=== PATIENT | male | born 1960 | race Caucasian/White ===

== ENCOUNTER → 2016-12-02 | Day surgery (SDC) | payer OTHER ==
[2016-11-28 12:07] VITALS: BMI 29.0
[~2016-12-02] VITALS: Ht 175.3 cm; Wt 90.9 kg
[~2016-12-02] MED LIST: ALBUAER2 INH; ATOR-26 PO; ATV/1 PO; BUPR-79 PO; BUPR100T8 PO; CITA40TA12 PO; FERR325T PO; LEVO175T3 PO; LIDOCAINE HCL 2% 2 ML VIAL (20MG/ML) ONE; LISI-729 PO; METO50TA16 PO; MULTTAB5 PO; OMEG10007 PO; OXYB5TAB74 PO; PHENYLEPHRINE HCL INJ 10 MG/ML VIAL ONE; PROPOFOL IV EMULSION 10 MG/ML 20 ML VIAL IV ONE; PRT/40 PO; QUET400T PO; RANI300T2 PO; SODIUM CHLORIDE 0.9% 500ML 500 ML IV ONE; SUMA100T15 PO; TOPI50TA16 PO; TRAZ1TAB52 PO
[2016-12-02 10:02] VITALS: Ht 175.3 cm; Wt 90.9 kg
--- NOTE | 2016-12-02 11:27 | Endo History and Physical ---
History & Physical Date of Service: Dec 02, 2016. Chief Complaint: chronic reflux Referring Physician: Dr. 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 Pre operative evaluation with MAO pH study off medication. Past Medical History Anxiety, Reflux, High Cholesterol, Hypertension, Thyroid Disease, Depression Past Surgical History Hx Cardiac Surgery: No Hx Internal Defibrillator: No Hx Pacemaker: No Hx Abdominal Surgery: No Hx of Implantable Prosthesis: No Hx Post-Op Nausea and Vomiting: No Hx Cancer Surgery: No Hx Thoracic Surgery: No Hx Orthopedic: No Hx Urinary Tract Surgery: No Family History None Social History Smoking Status: Former Smoker Hx Substance Use: No Hx Alcohol Use: No Allergies Coded Allergies: No Known Allergies (Verified , 12/02/16) Current Medications Reported Home Medications Medications Dose Route/Sig Max Daily Dose Days Date Category Lopressor (Metoprolol Tartrate) 50 Mg Tab 50 Mg PO HS 11/28/16 Reported Wellbutrin Sr (Bupropion HCl) 150 Mg Ertab 150 Mg PO QAM 11/28/16 Reported Wellbutrin Sr (Bupropion HCl) 100 Mg Ertab 100 Mg PO DAILY AT NOON 11/28/16 Reported Ferrous Sulfate 325 Mg Tab 1 Tab PO HS 11/28/16 Reported Zantac (Ranitidine HCl) 300 Mg Tab 300 Mg PO HS 11/28/16 Reported Seroquel Xr Tab (Quetiapine Fumarate) 400 Mg Tabcr 400 Mg PO HS 11/28/16 Reported Desyrel (Trazodone Hcl) 150 Mg Tab 150 Mg PO HS 11/28/16 Reported Ditropan (Oxybutynin Chloride) 5 Mg Tab 1 Tab PO BID 90 11/28/16 Reported Levothyroxine Sodium 175 Mcg Tab 1 Tab PO QAM 90 11/28/16 Reported Topamax (Topiramate) 50 Mg Tab 50 Mg PO HS 11/28/16 Reported Ativan (Lorazepam) 1 Mg Tab 1 Mg PO DAILY PRN 11/28/16 Reported Centrum (Multiple Vitamins W/ Minerals) 1 Tab Tab 1 Tab PO HS 11/28/16 Reported [place]-3 (Fish Oil) 1 Ea Cap 1 Cap PO HS 11/28/16 Reported Imitrex (Sumatriptan Succinate) 100 Mg Tab 1 Tab PO UD PRN 30 11/28/16 Reported Lipitor (Atorvastatin Calcium) 80 Mg Tab 80 Mg PO HS 12/06/15 Reported Ventolin (Albuterol) Inh 2 Puffs INH QID PRN 5 08/16/15 Reported Celexa (Citalopram Hydrobromide) 40 Mg Tab 40 Mg PO HS 10/29/14 Reported Pantoprazole Sodium (Pantoprazole) 40 Mg Tab 40 Mg PO BID 10/29/14 Reported Zestril (Lisinopril) 5 Mg Tab 5 Mg PO HS 09/10/14 Reported Vital Signs Weight (Kilograms): 90.91 Height (Feet): 5 Height (Inches): 9 Date Time Temp Pulse Resp B/P Pulse Ox O2 Delivery O2 Flow Rate FiO2 12/02/16 10:11 36.6 79 16 122/72 95 Room Air Physical Exam General Appearance: WD/WN, no apparent distress Respiratory/Chest: Auscultation: breath sounds normal, no wheezing, no rales/crackles Cardiovascular: Heart Auscultation: RRR, no murmurs Abdomen: Inspection & Palpation: soft, no tenderness, guarding & rebound Assessment and Plan For EGD with Mao.
--- NOTE | 2016-12-02 11:52 | Discharge Instructions ---
Endoscopy Patient Instructions Date / Procedure(s) Performed Dec 02, 2016. EGD Allergy Information Coded Allergies: No Known Allergies (Verified , 12/02/16) Discharge Date / Findings Dec 02, 2016. Alvarez's esophagitis. Pierre pH transducer placed. Medication Instructions Stopped Medication(s): all medication held this morning Restart Stopped Medication(s): Remain off all acid suppressing medications for 48 hours. OK to restart after returning Pierre recorder. Provider Instructions Activity Restrictions - No exercising or heavy lifting for 24 hours. - Do not drink alcohol the day of the procedure. - Do not drive a car or operate machinery until the day after the procedure. - Do not make any important decisions or sign important papers in 24 hours after the procedure. Following Day: - Return to full activity which may include returning to work/school. Diet Start your diet with liquids and light foods (jello, soup, juice, toast). Then eat your usual diet if not nauseated. Treatment For Common After Affects For mild abdominal pain, bloating, or excessive gas: - Rest - Eat lightly - Lie on right side Follow-Up Information Follow-up with Drs. Mcconnell and Pedro as scheduled Anesthesia Information What You Should Know You have had a procedure that required some medicine to reduce anxiety and discomfort. This treatment is called moderate sedation. After receiving the treatment, you may be sleepy, but you will be able to breathe on your own. The effects of the treatment may last for several hours. Follow these instructions along with Activity/Diet recommendations noted above: * Do NOT do anything where dizziness or clumsiness would be dangerous. * Rest quietly at home today, then you can be up and about tomorrow. * Have a responsible person stay with you the rest of today. * You may have had an I.V. today. If so, you may take the dressing off later today. Recommendations Call your doctor if: * Trouble breathing * Continuous vomiting for more than 24 hours * Temperature above 101 degrees * Severe abdominal pain or bloating * Pain not relieved by pain medicine ordered * There is increased drainage or redness from any incision * A large amount of rectal bleeding greater than 2-3 tablespoons. (If you had a polyp/s removed or have hemorrhoids, a small amount of blood - from the rectum is to be expected.) * You have any unanswered questions or concerns. IN THE EVENT OF A SERIOUS EMERGENCY, GO TO THE NEAREST EMERGENCY ROOM Your discharge instructions were prepared by provider Arya Gilman. Patient Instructions Signature Page Richard Saavedra Patient (or Guardian) Signature/Date: I have read and understand the instructions given to me by my caregivers. Caregiver/RN/Doctor Signature/Date: The above-named patient and/or guardian has received patient instructions on this date. + Original Patient Signature Page (only) stays with chart. Please make copy for patient.
--- NOTE | 2016-12-02 11:55 | Anesthesiology Progress Note ---
Anesthesia Post Op Note Date & Time Dec 02, 2016 at 11:55 Vital Signs Pain Intensity: 0 Vital Signs Past 12 Hours Date Time Temp Pulse Resp B/P Pulse Ox O2 Delivery O2 Flow Rate FiO2 12/02/16 10:11 36.6 79 16 122/72 95 Room Air Notes Mental Status: alert / awake / arousable, participated in evaluation Pt Amnestic to Procedure: Yes Nausea / Vomiting: adequately controlled Pain: adequately controlled Airway Patency, RR, SpO2: stable & adequate BP & HR: stable & adequate Hydration State: stable & adequate Anesthetic Complications: no major complications apparent
[2016-12-02 12:17] VITALS: BP 106/66; PULSE 68; O2SAT 96
--- NOTE | 2016-12-03 00:45 | GI REPORT ---
Procedure Date: 12/02/2016 11:19 AM Procedure: Upper GI endoscopy Indications: Placement of Mao pH probe with patient off acid suppression, Alvarez's esophagus, Preoperative assessment Medicines: Monitored Anesthesia Care Complications: No immediate complications. Estimated blood loss: None. Estimated Blood Loss: Estimated blood loss: none. Procedure: Pre-Anesthesia Assessment: - Prior to the procedure, a History and Physical was performed, and patient medications, allergies and sensitivities were reviewed. The patient's tolerance of previous anesthesia was reviewed. - ASA Grade Assessment: III - A patient with severe systemic disease. After obtaining informed consent, the endoscope was passed under direct vision. Throughout the procedure, the patient's blood pressure, pulse, and oxygen saturations were monitored continuously. The scope was introduced through the mouth, and advanced to the third part of duodenum. The upper GI endoscopy was accomplished with ease. The patient tolerated the procedure well. Findings: The esophagus and gastroesophageal junction were examined with white light from a forward view and retroflexed position. There were esophageal mucosal changes classified as Alvarez's stage C0-M1 per Posey criteria. These changes involved the mucosa at the upper extent of the gastric folds (37 cm from the incisors) extending to the Z-line (36 cm from the incisors). Union-colored mucosa was present. The maximum longitudinal extent of these esophageal mucosal changes was 1 cm in length. Normal mucosa was found in the lower third of the esophagus. The MAO capsule with delivery system was introduced through the mouth and advanced into the esophagus, such that the MAO pH capsule was positioned 31 cm from the incisors, which was 6 cm proximal to the EG junction. Suction was applied to the well of the MAO pH capsule to suck in the adjacent mucosa of the esophagus using the external vacuum pump for 60 seconds. The MAO pH capsule was then deployed by depressing the plunger on top of the handle to advance the locking pin into the mucosa, thereby attaching the capsule to the esophagus. The plunger was then rotated a quarter turn clockwise to release the capsule from the delivery system. The delivery system was then withdrawn. Endoscopy was utilized for placement of the probe only. A medium-sized hiatus hernia was present. The stomach was normal. The examined duodenum was normal. Impression: - Esophageal mucosal changes classified as Alvarez's stage C0-M1 per Posey criteria. - Normal mucosa was found in the lower third of the esophagus. - Medium-sized hiatus hernia. - Normal stomach. - Normal examined duodenum. - The MAO pH capsule was positioned 31 cm from the naris, which was 6 cm proximal to the EG junction. - No specimens collected. Recommendation: - Written discharge instructions were provided to the patient. - Discharge patient to home (with escort). Arya Gilman M.D. Arya Gilman MD 12/02/2016 11:49:33 AM This report has been signed electronically. Note Initiated On: 12/02/2016 11:19 AM I attest to the content of the Intraoperative Record and orders documented therein, exceptions below
--- NOTE | 2016-12-12 10:11 | Procedure Note ---
Procedure Note Date of Service Dec 12, 2016. Procedure Note Pierre results reviewed - High Demeester score indicates abnormal acid exposure in lower esophagus. There is a high probabilty that pt's symptom of heartburn is due to reflux. There is a moderate probability that pt's symptom of regurgitation is due to reflux.
== END | disposition home or self-care (01) ==
LOC: C.GI 09:37
PROVIDERS: ATTEND Internal Medicine Gastroenterology
DX: K21.9 Gastro-esophageal reflux disease without esophagitis (principal); K44.9 Diaphragmatic hernia without obstruction or gangrene; E78.00 Pure hypercholesterolemia, unspecified; I10 Essential (primary) hypertension; F32.9 Major depressive disorder, single episode, unspecified; E07.9 Disorder of thyroid, unspecified; F41.9 Anxiety disorder, unspecified; Z87.891 Personal history of nicotine dependence

== ENCOUNTER 2017-02-21 10:42 | Emergency (ER) | payer OTHER ==
[~2017-02-21 10:42] MED LIST changes: +DTR/5 PO; +FERR1TAB62 PO; -FERR325T PO; -LIDOCAINE HCL 2% 2 ML VIAL (20MG/ML) ONE; -OXYB5TAB74 PO; +PANT40TA2 PO; -PHENYLEPHRINE HCL INJ 10 MG/ML VIAL ONE; -PROPOFOL IV EMULSION 10 MG/ML 20 ML VIAL IV ONE; -PRT/40 PO; -SODIUM CHLORIDE 0.9% 500ML 500 ML IV ONE
[2017-02-21] MEDS ORDERED: SODIUM BICARB 8.4% INJ 50 MEQ/50 ML SYR IV ONE (11:03)
[2017-02-21 11:04] VITALS: PULSE 0
--- NOTE | 2017-02-21 11:05 | EMERGENCY ROOM VISIT NOTE ---
History Report prepared by Dom: Will Angel Under the Supervision of: Dr. Vahid Wilson M.D. First contact with patient: 10:48 Stated Complaint: CARDIAC ARREST History of Present Illness The patient is a 62 year old male who presents to the Emergency Room with an acute cardiac arrest that started at least 45 minutes TAX AUDITOR. The patient was found unresponsive. A bottle of his mother's liquid morphine was found empty next to the patient. EMS notes that they were told that he was likely under the influence of alcohol as well. The patient was given Narcan and Epinephrine en route and he was also intubated. Compressions were started en route. The patient has a history of drug overdose. History is limited secondary to cardiac arrest. Source of History: EMS History Limited By: cardiac arrest Onset: at least 45 minutes TAX AUDITOR Position: other (global) Quality: other (cardiac arrest) Timing: other (acute) Review of Systems ROS is limited secondary to cardiac arrest. Past Medical & Surgical Medical Problems: (1) Barretts esophagus (2) Stomach ulcer (3) Traumatic injury (4) Ulcer Family History Diabetes mellitus FHx: cancer Heart disease Hypertension Social History Alcohol Use: occasionally Current/Historical Medications Scheduled Atorvastatin (Lipitor), 80 MG PO HS Bupropion (Wellbutrin Sr), 100 MG PO DAILY AT NOON Bupropion (Wellbutrin Sr), 150 MG PO QAM Citalopram Hydrobromide (Celexa), 40 MG PO HS Ferrous Sulfate (Ferrous Sulfate), 1 TAB PO HS Fish Oil ([place]-3), 1 CAP PO HS Levothyroxine Sodium (Levothyroxine Sodium), 1 TAB PO QAM Lisinopril (Zestril), 5 MG PO HS Metoprolol Tartrate (Lopressor) (Lopressor), 50 MG PO HS Multiple Vitamins W/ Minerals (Centrum), 1 TAB PO HS Oxybutynin Chloride (Ditropan), 1 TAB PO BID Pantoprazole (Pantoprazole Sodium), 40 MG PO BID Quetiapine Fumarate Xr (Seroquel Xr Tab), 400 MG PO HS Ranitidine (Zantac), 300 MG PO HS Topiramate (Topamax), 50 MG PO HS Trazodone Hcl (Desyrel), 150 MG PO HS Scheduled PRN Albuterol (Ventolin), 2 PUFFS INH QID PRN for Shortness of Breath Lorazepam (Ativan), 1 MG PO DAILY PRN for Anxiety Sumatriptan Succinate (Imitrex), 1 TAB PO UD PRN for Migraine Allergies Coded Allergies: No Known Allergies (Verified , 12/02/16) Physical Exam Vital Signs Date Time Temp Pulse Resp B/P Pulse Ox O2 Delivery O2 Flow Rate FiO2 02/21/17 11:04 0 02/21/17 11:03 0 02/21/17 10:56 0 0 Ambu-Bag 15.0 Physical Exam GENERAL: Patient is intubated and unresponsive. HEENT: Mid fixed unresponsive pupils. ET tube in place. NECK: Trachea is midline. LUNGS: Bilateral breath sounds with bagging. HEART: No cardiac activity. ABDOMEN: Soft, nontender, bowel sounds positive, no masses appreciated, no peritonitis. BACK: No midline tenderness, no CVA tenderness EXTREMITIES: Normal motion all extremities, no cyanosis, no edema. IO in the left tibia. NEUROLOGIC: GCS of 3, unresponsive. SKIN: Mottled with no capillary refill. Medical Decision & Procedures ED Course 1040: Code Blue was called prior to arrival. 1048: Dr. Tilley, Nps, is in the ED. 1056: The patient was evaluated in room B1. A complete history and physical exam was performed. 1056: Fast exam was performed and no cardiac activity was found. 1057: Time of called. 1110: Discussed everything with the patient's family. Medical Decision Differential: Toxicological, Overdose, Infectious, Stroke, SAH, Trauma, Electrolyte Abnormality, Hypoglycemia, Alcohol Intoxication, Drug Intoxication, Cardiac Abnormality, Sepsis, Meningitis/Encephalitis, Trauma, Excited Delirium, Serotonin Syndrome, Psychiatric, amongst other pathologies entertained. 56 yr old male arrives in unwitnessed cardiac arrest after being found pulseless and not breathing at home by his [id number] hospice nurse with an empty bottle of liquid morphine next to him. Reportedly long history of drug abuse/overdosing. He by arrival time is already >45 minutes in cardiac arrest with extensive attempts at resus. I had been awaare and given pre-hospital medical command to EMS en route. Had pre-ems CPR, EMS intubation, ACLS with multiple doses epi, Bicarb, narcan. Continuous ACLS en route to hospital. No ROSC. ON arrival GSC 3T with mottled skin, no cardiac nor resp. Bedside US with no cardiac movement. No trauma evident. Monitor asystole in 3 different leads. Given prolonged cardiac arrest and no ROSC with findings on arrival he was pronounced at 10:57am. I made , children and family friends aware of his with case management. All questions asked. Balloon Tester in to evaluate and will take case from here. Consults Time Called: 1040 Consulting Physician: Dr. Tilley, Nps Returned Call: 1048 He was at bedside during the code. Impression Primary Impression: Cardiopulmonary arrest Critical Care I have personally spent greater than 35 minutes of critical care time in the direct management of this patient. This was a life/limb threatening event. This includes time spent evaluating patient, direct bedside care, chart review, placing orders, interpretation of diagnostic studies, discussion with consultants, patient, and family members, as well as other required patient management activities. This 35 minutes is in excess of all separately billable procedures. Scribe Attestation The scribe's documentation has been prepared under my direction and personally reviewed by me in its entirety. I confirm that the note above accurately reflects all work, treatment, procedures, and medical decision making performed by me. Departure Information Dispostion
== END 2017-02-21 11:36 | disposition other institution (70) ==
LOC: EDBD 10:42 → C.EDB 11:02 → C.EDA 11:36
DX: I46.9 Cardiac arrest, cause unspecified (principal); Z83.3 Family history of diabetes mellitus; Z82.49 Family history of ischemic heart disease and other diseases of the circulatory system